=== PATIENT | female | born 1960 | race African-American/Black ===

== ENCOUNTER 2018-09-14 15:18 | Emergency (ER) | payer OTHER ==
[2018-09-14 15:31] VITALS: BP 186/110
--- NOTE | 2018-09-14 16:20 | UC ---
Shoulder Pain HPI - HPI Summary HPI Summary: 57-year-old female comes to clinic today with a chief complaint of right scapula and right shoulder pain. This started about 3 weeks ago after she hugged someone. Pains worse with range of motion and also palpation along the medial aspect of the right scapula. Pain does radiate down towards the right elbow. Denies any weakness or numbness. No rash. No shortness of breath no chest pain. She's tried heat and cold and ibuprofen and developing some mild improvement in the pain gets worse again. - History of Current Complaint Chief Complaint: UCUpperExtremity Stated Complaint: SHOULDER AND ARM PAIN Time Seen by Provider: 09/14/18 15:52 Pain Intensity: 12 - Allergies/Home Medications Allergies/Adverse Reactions: Allergies Allergy/AdvReac Type Severity Reaction Status Date / Time amlodipine Allergy Swelling Verified 09/14/18 15:31 aspirin Allergy Nausea And Verified 09/14/18 15:31 Vomiting morphine Allergy Hives Verified 09/14/18 15:31 PMH/Surg Hx/FS Hx/Imm Hx Endocrine History: Dyslipidemia Cardiovascular History: Hypertension - Surgical History Surgical History: Yes Surgery Procedure, Year, and Place: Left knee arthroscopy, left wrist cyst removed 1983,X2. hysterectomy. csection x2. breast reduction - Family History Known Family History: Positive: Non-Contributory - Social History Alcohol Use: Occasionally Substance Use Type: None Smoking Status (MU): Current Some Day Smoker Type: Cigarettes Amount Used/How Often: 1 pack cig per week Review of Systems All Other Systems Reviewed And Are Negative: Yes Constitutional: Positive: Negative Skin: Positive: Negative Eyes: Positive: Negative ENT: Positive: Negative Respiratory: Positive: Negative Cardiovascular: Positive: Negative Gastrointestinal: Positive: Negative Motor: Positive: Negative Neurovascular: Positive: Negative Musculoskeletal: Positive: Other: - Patient is tender to palpation along the medial aspect of the right scapula. This is the primary area of pain. Minimally tender along the shoulder joint itself. Normal radial pulses bilaterally no sensation deficit on the upper extremities. Strength 5 out of 5 throughout. Fingers wrist elbows with full range of motion. Shoulders full extension go to 150 bilaterally. Abduction goes to 135. Internal rotation on the left goes to T6 on the right goes L1. Neurological: Positive: Negative Psychological: Positive: Negative Is Patient Immunocompromised?: No Physical Exam Triage Information Reviewed: Yes Appearance: Well-Appearing, No Pain Distress, Well-Nourished Vital Signs: Initial Vital Signs Temp 97.9 F 09/14/18 15:26 Pulse 98 09/14/18 15:26 Resp 18 09/14/18 15:26 BP 186/110 09/14/18 15:26 Pulse Ox 99 09/14/18 15:26 Vital Signs Reviewed: Yes Eye Exam: Normal Eyes: Positive: Conjunctiva Clear Neck exam: Normal Neck: Positive: Supple Respiratory: Positive: Lungs clear, Normal breath sounds, No respiratory distress Cardiovascular: Positive: RRR Musculoskeletal: Positive: Other: - Patient is tender to palpation along the medial aspect of the right scapula. This is the primary area of pain. Minimally tender along the shoulder joint itself. Normal radial pulses bilaterally no sensation deficit on the upper extremities. Strength 5 out of 5 throughout. Fingers wrist elbows with full range of motion. Shoulders full extension go to 150 bilaterally. Abduction goes to 135. Internal rotation on the left goes to T6 on the right goes L1. Neurological Exam: Normal Neurological: Positive: Alert, Muscle Tone Normal Psychological Exam: Normal Psychological: Positive: Age Appropriate Behavior Skin Exam: Normal Shoulder Course/Dx - Course Course Of Treatment: Order Information: SHOULDER RIGHT 2+ VWS. Accession Number : [id number]. CPT: 31302. INDICATION: Sudden onset right shoulder pain. COMPARISON: None. TECHNIQUE: 4 views of the right shoulder were obtained. FINDINGS: The adequately corticated bones are in normal alignment. Joint spaces appear. maintained. No fracture, dislocation or focal bony abnormality is seen. IMPRESSION: Normal radiograph of the right shoulder. If the patient's symptoms persist, follow-up imaging is recommended. . <Electronically signed by Jonatan Richey MD in [facility]> 09/14/18 0119. Order Information: SCAPULA RIGHT. Accession Number: [id number]. CPT: 31384. INDICATION: Medial right scapular pain. TECHNIQUE: 2 views of the right scapula were obtained. FINDINGS: The bones are in normal alignment. No fracture is seen. Joint spaces appear. maintained. IMPRESSION: NO EVIDENCE FOR FRACTURE, IF THE PATIENT'S SYMPTOMS PERSIST RECOMMEND. FOLLOW- UP IMAGING. . < Electronically signed by Jonatan Richey MD in [facility]> 09/14/18 1640. I discussed the x-ray results with the patient. The plan is ibuprofen and ice maintain range of motion which was discussed and demonstrated with the patient. Follow-up with either primary care doctor for probable physical therapy or going through orthopedics. - Differential Dx/Diagnosis Provider Diagnosis: Right shoulder pain Discharge - Sign-Out/Discharge Documenting (check all that apply): Patient Departure All imaging exams completed and their final reports reviewed: Yes - Discharge Plan Condition: Stable Disposition: HOME Prescriptions: Cyclobenzaprine TAB* [Flexeril 10 MG TAB*] 10 mg PO TID PRN #15 tab MDD 3 PRN Reason: Pain Patient Education Materials: Shoulder Pain (ED) Referrals: Jose Obrien MD [Primary Care Provider] - Lydia Howell MD [Medical Doctor] - Additional Instructions: FOLLOW UP WITH YOUR PRIMARY CARE DOCTOR OR ORTHOPEDICS, DR HOWELL. GET RECHECKED FOR ANY WORSENING OF YOUR CONDITION OR QUESTIONS OR CONCERNS. - Billing Disposition and Condition Condition: STABLE Disposition: Home
== END 2018-09-14 17:19 | disposition home or self-care (01) ==
LOC: UCEAST 15:18
DX: M25.511 Pain in right shoulder (principal); Z88.8 Allergy status to other drugs, medicaments and biological substances; I10 Essential (primary) hypertension; Z88.5 Allergy status to narcotic agent; F17.210 Nicotine dependence, cigarettes, uncomplicated
CPT/HCPCS: 99212; G0463

== ENCOUNTER 2019-01-11 08:31 | Emergency (ER) | payer OTHER ==
[2019-01-11 10:00] VITALS: BP 170/108
[2019-01-11] MEDS ORDERED: guaiFENesin/CODIEN 100MG-10MG* 5 ML UDC PO ONE (10:21)
[2019-01-11] MEDS ORDERED: Amoxicillin/Clavulanate TAB* 875 MG PO ONE (10:21)
--- NOTE | 2019-01-11 10:34 | UC ---
Respiratory Complaint HPI - HPI Summary HPI Summary: 1 WEEK OF COUGH, CONGESTION, CHILLS, AGUIRRE, SINUS CONGESTION. NOT GETTING BETTER. - History of Current Complaint Chief Complaint: UCRespiratory Stated Complaint: SINUS HEADACHE Time Seen by Provider: 01/11/19 09:56 Hx Obtained From: Patient Onset/Duration: Gradual Onset, Lasting Days, Still Present Timing: Constant Severity Initially: Moderate Severity Currently: Moderate Pain Intensity: 3 Pain Scale Used: 0-10 Numeric Character: Cough: Nonproductive Aggravating Factors: Nothing Alleviating Factors: Nothing Associated Signs And Symptoms: Positive: Chills, URI, Nasal Congestion, Sinus Discomfort. Negative: Dyspnea, Fever - Allergies/Home Medications Allergies/Adverse Reactions: Allergies Allergy/AdvReac Type Severity Reaction Status Date / Time amlodipine Allergy Swelling Verified 09/14/18 15:31 aspirin Allergy Nausea And Verified 09/14/18 15:31 Vomiting morphine Allergy Hives Verified 09/14/18 15:31 PMH/Surg Hx/FS Hx/Imm Hx Endocrine History: Diabetes Cardiovascular History: Hypertension - Surgical History Surgical History: Yes Surgery Procedure, Year, and Place: Left knee arthroscopy, left wrist cyst removed 1983,X2. hysterectomy. csection x2. breast reduction - Family History Known Family History: Positive: Non-Contributory - Social History Alcohol Use: Occasionally Substance Use Type: None Smoking Status (MU): Current Some Day Smoker Type: Cigarettes Amount Used/How Often: 1 pack cig per week Review of Systems All Other Systems Reviewed And Are Negative: Yes Constitutional: Positive: Chills ENT: Positive: Nasal Discharge, Sinus Congestion Respiratory: Positive: Cough Cardiovascular: Positive: Negative Gastrointestinal: Positive: Negative Neurological: Positive: Headache Physical Exam Triage Information Reviewed: Yes Appearance: Well-Appearing, No Pain Distress, Well-Nourished Vital Signs: Initial Vital Signs Temp 98.4 F 01/11/19 08:44 Pulse 91 01/11/19 08:44 Resp 20 01/11/19 08:44 BP 192/131 01/11/19 08:44 Pulse Ox 98 01/11/19 08:44 Vital Signs Reviewed: Yes Eyes: Positive: Conjunctiva Clear ENT: Positive: Hearing grossly normal, Pharynx normal, TMs normal Neck: Positive: Supple, Nontender, No Lymphadenopathy Respiratory Exam: Normal Cardiovascular Exam: Normal Abdomen Description: Positive: Soft Musculoskeletal: Positive: No Edema Neurological: Positive: Alert Psychological: Positive: Age Appropriate Behavior Skin: Negative: Rashes Respiratory Course/Dx - Differential Dx/Diagnosis Provider Diagnosis: Sinusitis Discharge - Sign-Out/Discharge Documenting (check all that apply): Patient Departure All imaging exams completed and their final reports reviewed: No Studies - Discharge Plan Condition: Stable Disposition: HOME Prescriptions: Amoxicillin/Clavulanate TAB* [Augmentin TAB 875*] 875 mg PO BID #20 tab Codeine Phosphate/Guaifenesin [Codeine-Guaifen 10-100 mg/5 ml] 5 - 10 ml PO Q6H PRN #150 ml MDD 40ML PRN Reason: Cough Patient Education Materials: Sinusitis (ED) Forms: *Work Release Referrals: Suzie Kitchen MD [Medical Doctor] - If Needed Additional Instructions: YOUR SYMPTOMS MAY BE VIRALLY MEDIATED BUT GIVEN THE LENGTH OF TIME YOU HAVE BEEN ILL WE WILL COVER YOU WITH ANTIBIOTICS. IF YOU START THE MEDICINE BE SURE TO TAKE IT FOR THE FULL COURSE. REST, HYDRATE, OTC MEDS NEEDED. WILL ALSO TREAT WITH COUGH MEDICINE. SEEK FOLLOW-UP WITH YOUR PCP IF YOU ARE NOT IMPROVING OVER THE NEXT 1-2 WEEKS. YOUR BLOOD PRESSURE WAS ELEVATED TODAY. CONTINUE TO FOLLOW THIS WITH YOUR PCP AND BE SEEN WITHIN 4 WEEKS. - Billing Disposition and Condition Condition: STABLE Disposition: Home
== END 2019-01-11 10:39 | disposition home or self-care (01) ==
LOC: UCEAST 08:31
DX: J32.9 Chronic sinusitis, unspecified (principal); E11.9 Type 2 diabetes mellitus without complications; I10 Essential (primary) hypertension; F17.210 Nicotine dependence, cigarettes, uncomplicated; Z88.5 Allergy status to narcotic agent; Z88.8 Allergy status to other drugs, medicaments and biological substances
CPT/HCPCS: 99212; G0463

== ENCOUNTER 2023-12-21 09:39 | Observation (INO) ==
[2023-12-21 10:08] LABS: ABS Basophils 0.1 10^3/uL (0.0-0.1); ABS Eosinophils 0.2 10^3/uL (0.0-0.5); ABS Lymphocytes 2.4 10^3/uL (1.0-4.8); ABS Monocytes 0.5 10^3/uL (0.0-0.9); ABS Neutrophils 5.8 10^3/uL (1.5-7.6); ABS Nucleated RBC 0.01 10^3/ul; Eosinophil % 2.2 %; Hematocrit 37.9 % (35-45); Hemoglobin 13.2 g/dL (11.5-14.3); Mean Corpuscular Hemoglobin 28.9 pg (27-33); Mean Corpuscular Hgb Conc 34.9 g/dL (31-36); Mean Corpuscular Volume 82.8 fL (80-97); Mean Platelet Volume 8.8 fL (7.5-11.2); Nucleated Red Blood Cells % 0.1 %/100WBC (0.0-0.8); Platelet Count 316 10^3/uL (150-450); Red Blood Count 4.58 10^6/uL (3.63-4.92); Red Cell Distribution Width 16.2 % (12-17)
[2023-12-21 10:27] LABS: INR 1.1 (0.83-1.13)
[2023-12-21 10:49] LABS: Albumin 3.9 g/dL (3.2-5.2); Albumin/Globulin Ratio 1.1 (1-3); Calcium 9.2 mg/dL (8.6-10.3); Globulin 3.6 g/dL (2-4); Potassium 3.8 mmol/L (3.5-5.0); Total Bilirubin 0.6 mg/dL (0.2-1.0); Total Protein 7.5 g/dL (6.4-8.9); eGFR CKD-EPI 63.3 (>60)
[2023-12-21 11:40] LABS: High Sensitivity Troponin 1 Hr 5 pg/mL (<15)
[2023-12-21] MEDS: cefTRIAXone 1 gm/50 mL D5W 1 GM/50 ML BAG IV ONE (12:27)
[2023-12-21] MEDS: Azithromycin 500 mg/250 ml NS 500 MG/250 ML BAG IVPB ONE (13:14)
[2023-12-21] MEDS: Iohexol 350 (CONTRAST) 500 ML MDV IV ONE ×2 (14:36→14:37)
[2023-12-21] MEDS: Enoxaparin 40 MG/0.4 ML SYR SUBCUT SCH (20:43)
[2023-12-22] MEDS: Venlafaxine XR 75 mg PO SCH (09:20)
[2023-12-22] MEDS: cefTRIAXone 1 gm/50 mL D5W 1 GM/50 ML BAG IV SCH (15:51)
[2023-12-22] MEDS: Azithromycin 500 mg/250 ml NS 500 MG/250 ML BAG IVPB SCH (17:57)
[2023-12-23 10:09] VITALS: BP 160/109
== END 2023-12-23 11:45 | disposition home or self-care (01) ==
LOC: EDHOLD 09:39 → ED 09:39 → MED 12-22 14:38
PROVIDERS: ADMIT Hospitalist; ATTEND Hospitalist